=== PATIENT | female | born 1985 | race African-American/Black ===

== ENCOUNTER 2017-11-05 08:31 | Emergency (ER) | payer BC, OTHER ==
[2017-11-05 08:36] VITALS: BMI 23.3
--- NOTE | 2017-11-05 09:24 | PDOC ---
History of Present Illness - General History Source: Patient Exam Limitations: No Limitations - History of Present Illness Initial Comments: 11/05/17 09:37 The patient is a 32 year old female, with a significant past medical history of asthma, who presents to the emergency department with chills, fever, chest pain , nauesa, vomit, and cough for about 4 days. The patient reports the chest pain is constant often made worse with any movement or exertion. She notes having intermittent chills/fevers and a productive cough, often bringing up green sputum. She also notes vomiting after coughing. She denies recent dysuria, frequency, urgency or hematuria. She denies recent shortness of breath. Denies having flu shot. Allergies: NKA Past surgical history: None reported. Social history: Nonsmoker. Denies EtOH use and recreational drug use. Primary Care Physician: None <Cedric Nunn - Last Filed: 11/05/17 11:33> <Juventino Xie - Last Filed: 11/05/17 12:08> - General Chief Complaint: SIRS, Suspected/Possible Stated Complaint: SOB (ASTHMA) Time Seen by Provider: 11/05/17 09:15 Past History <Cedric Nunn - Last Filed: 11/05/17 11:33> - Past Medical History Asthma: Yes COPD: No Kidney Stones: Yes Psychiatric Problems: Yes (ANXIETY.) - Reproductive History (#): 0 - Immunization History Immunization Up to Date: Yes - Suicide/Smoking/Psychosocial Hx Smoking Status: No Smoking History: Never smoked Number of Cigarettes Smoked Daily: 0 Hx Alcohol Use: No Drug/Substance Use Hx: No Substance Use Type: None Hx Substance Use Treatment: No <Juventino Xie - Last Filed: 11/05/17 12:08> - Past Medical History Allergies/Adverse Reactions: Allergies Allergy/AdvReac Type Severity Reaction Status Date / Time No Known Allergies Allergy Verified 11/05/17 08:36 Home Medications: Ambulatory Orders NK [No Known Home Medication] 11/05/17 Review of Systems - Review of Systems Able to Perform ROS?: Yes Comments:: 11/05/17 09:37 GENERAL/CONSTITUTIONAL: +fever and chills. No weakness. HEAD, EYES, EARS, NOSE AND THROAT: No change in vision. No ear pain or discharge. No sore throat. CARDIOVASCULAR: +chest pain No shortness of breath. RESPIRATORY: +cough No wheezing, or hemoptysis. GASTROINTESTINAL: +nausea, vomiting No diarrhea or constipation. GENITOURINARY: No dysuria, frequency, or change in urination. MUSCULOSKELETAL: No joint or muscle swelling or pain. No neck or back pain. SKIN: No rash NEUROLOGIC: No headache, vertigo, loss of consciousness, or change in strength/ sensation. ENDOCRINE: No increased thirst. No abnormal weight change. HEMATOLOGIC/LYMPHATIC: No anemia, easy bleeding, or history of blood clots. ALLERGIC/IMMUNOLOGIC: No hives or skin allergy. <Cedric Nunn - Last Filed: 11/05/17 11:33> *Physical Exam - Vital Signs Last Vital Signs Temp Pulse Resp BP Pulse Ox 100.4 F H 102 H 20 128/83 98 11/05/17 08:33 11/05/17 08:33 11/05/17 08:33 11/05/17 08:33 11/05/17 08:33 - Physical Exam Comments: 11/05/17 10:13 GENERAL: Awake, alert, and fully oriented, in no acute distress HEAD: No signs of trauma EYES: PERRLA, EOMI, sclera anicteric, conjunctiva clear ENT: Auricles normal inspection, hearing grossly normal, nares patent, oOropharynx is erythematous. Bilateral anterior lymphadenopathy. Moist mucosa NECK: Normal ROM, supple, no lymphadenopathy, JVD, or masses LUNGS: Mild Rhonchi bilaterally. HEART: Regular rate and rhythm, normal S1 and S2, no murmurs, rubs or gallops ABDOMEN: Soft, nontender, normoactive bowel sounds. No guarding, no rebound. No masses EXTREMITIES: Normal range of motion, no edema. No clubbing or cyanosis. No cords, erythema, or tenderness NEUROLOGICAL: Cranial nerves II through XII grossly intact. Normal speech, normal gait SKIN: Warm, Dry, normal turgor, no rashes or lesions noted. <Cedric Nunn - Last Filed: 11/05/17 11:33> - Vital Signs Last Vital Signs Temp Pulse Resp BP Pulse Ox 100.4 F H 102 H 20 128/83 98 11/05/17 08:33 11/05/17 08:33 11/05/17 08:33 11/05/17 08:33 11/05/17 08:33 <Juventino Xie - Last Filed: 11/05/17 12:08> ED Treatment Course - RADIOLOGY Radiograph Interpretation: 11/05/17 11:33 CHEST X-RAY IMPRESSIONS BY : No evidence of active pulmonary disease. <Cedric Nunn - Last Filed: 11/05/17 11:33> Medical Decision Making - Medical Decision Making 11/05/17 10:25 Patient is a 32-year-old female with history of asthma (no intubations who presents to the ER with signs and symptoms of flulike illness. Patient is febrile and mildly tachycardic on initial evaluation. Intermittent rhonchi noted bilaterally. Will obtain flu swab, we'll administer Combivent therapy and NSAIDs, we'll obtain chest x-ray to rule out pneumonia. No indication for steroid therapy at this moment. We'll reassess. 11/05/17 12:03 Patient reassessed. Patient is resting comfortably. Lungs have cleared. No adventitious lung sounds are appreciated this time. Patient is also defervesced. Patient is noted to be influenza be positive. Chest x-ray reveals no evidence of infiltrate or effusion. Patient's received first dose of Tamiflu. Patient is safe for discharge with outpatient treatment. I've also informed the patient's of need for prophylaxis with Tamiflu. Patient will be discharged with return to work after a 24-hour afebrile period. <Juventino Xie - Last Filed: 11/05/17 12:08> *DC/Admit/Observation/Transfer - Attestations Scribe Attestion: 11/05/17 09:37 Documentation prepared by Cedric Nunn, acting as medical technical writer for Juventino Xie MD/. <Cedric Nunn - Last Filed: 11/05/17 11:33> - Attestations Physician Attestion: 11/05/17 10:25 The documentation was prepared by the scribe under my direct supervision. I have reviewed the documentation which correctly represents the findings, medical decision-making and critical action taken by me. <Juventino Xie - Last Filed: 11/05/17 12:08> Diagnosis at time of Disposition: Influenza - Discharge Dispostion Disposition: HOME Condition at time of disposition: Stable - Referrals Referrals: Satnam Hussein MD [Staff Physician] - - Patient Instructions Printed Discharge Instructions: DI for Fever (Symptom) -- Adult, Influenza - Post Discharge Activity Forms/Work/School Notes: Back to Work
[2017-11-05] MEDS ORDERED: IBUPROFEN 600 MG TABLET (FP) PO ONE ×2 (09:35→09:41)
[2017-11-05] MEDS ORDERED: ALBUTEROL SO4 2.5/IPRATROPIUM 0.5 INH SOL 3 ML VIAL.NEB. NEB ONE ×4 (09:36→10:23)
[2017-11-05] MEDS ORDERED: OSELTAMIVIR PHOSPHATE 75 MG CAPSULE PO ONE (10:12)
[2017-11-05] MEDS ORDERED: OSELTAMIVIR PHOSPHATE 75 MG CAPSULE ONE (10:22)
[2017-11-05 12:09] VITALS: BP 123/86; PULSE 94; TEMP 99.6
== END 2017-11-05 12:18 | disposition home or self-care (01) ==
LOC: JER 08:31
PROC: 3E0F7GC Introduction of Other Therapeutic Substance into Respiratory Tract, Via Natural or Artificial Opening (ICD-10-PCS; principal; 2017-11-05)
DX: J11.1 Influenza due to unidentified influenza virus with other respiratory manifestations (principal); J45.909 Unspecified asthma, uncomplicated
CPT/HCPCS: 71046-TC-FY; 84703; 87804; 99284-25

== ENCOUNTER 2019-05-06 20:48 | Emergency (ER) | payer SELFPAY ==
--- NOTE | 2019-05-06 20:58 | PDOC ---
Rapid Medical Evaluation Chief Complaint: Chest Pain Time Seen by Provider: 05/06/19 20:51 Medical Evaluation: Allergies Allergy/AdvReac Type Severity Reaction Status Date / Time No Known Allergies Allergy Verified 11/05/17 08:36 05/06/19 20:52 I have performed a brief in-person evaluation of this patient. The patient presents with a chief complaint of: right breast pain with mass x 2 weeks. + Hx of tumor [id number] years ago same breast - benign . No drainage, no fevers. Pertinent physical exam findings: not examined in triage. I have ordered the following: US right breast The patient will proceed to the ED for further evaluation. 05/06/19 20:55 Discharge Disposition - Diagnosis Breast pain - Discharge Dispostion Condition at time of disposition: Stable - Referrals - Patient Instructions - Post Discharge Activity
[2019-05-06 21:04] VITALS: BP 132/76; PULSE 88; TEMP 98.3; BMI 26.4
[2019-05-06] MEDS ORDERED: IBUPROFEN 600 MG TABLET (FP) PO ONE ×2 (21:26→21:31)
--- NOTE | 2019-05-06 21:26 | PDOC ---
History of Present Illness - General Chief Complaint: Pain, Acute Stated Complaint: LUMP IN R BREAST Time Seen by Provider: 05/06/19 20:51 History Source: Patient Exam Limitations: No Limitations Past History - Past Medical History Allergies/Adverse Reactions: Allergies Allergy/AdvReac Type Severity Reaction Status Date / Time No Known Allergies Allergy Verified 11/05/17 08:36 Home Medications: Ambulatory Orders NK [No Known Home Medication] 05/06/19 Asthma: Yes COPD: No Kidney Stones: Yes Psychiatric Problems: Yes (ANXIETY.) - Reproductive History (#): 0 - Immunization History Td Vaccination: Yes TDAP Vaccination: Yes Immunization Up to Date: Yes - Psycho Social/Smoking Cessation Hx Smoking Status: No Smoking History: Never smoked Number of Cigarettes Smoked Daily: 0 Hx Alcohol Use: No Drug/Substance Use Hx: No Substance Use Type: None Hx Substance Use Treatment: No *Physical Exam - Vital Signs Last Vital Signs Temp Pulse Resp BP Pulse Ox 98.3 F 88 19 132/76 100 05/06/19 20:52 05/06/19 20:52 05/06/19 20:52 05/06/19 20:52 05/06/19 20:52 - Physical Exam General Appearance: No: Apparent Distress Respiratory/Chest: positive: Lungs Clear, Normal Breath Sounds. negative: Respiratory Distress Cardiovascular: positive: Regular Rhythm, Regular Rate, S1, S2. negative: Murmur Integumentary: positive: Other (large lump palpable along R breast (around 6x9 cm), it is firm and indurated, only notable on deep palpation, +R nipple inverted, no dimpling of skin, no change in skin color, no flucutuance to site, no nipple discharge). negative: Erythema, Rash, Swelling, Ecchymosis, Bruising Neurologic: positive: Alert, Normal Mood/Affect Medical Decision Making - Medical Decision Making 33 y/o F hx of asthma, R breast tumor removal 10 years ago (unable to recall name of breast surgeon who performed surgery) presents with R breast mass x 1 month, causing pain the past 2 days. Mentions mass has been gradually getting bigger and has not had it evaluated. Denies fever, sob, cp, abd pain, n/v, nipple discharge. Denies FH of breast CA Unable to perform breast US here (as d/w the tech) Not suspicious for abscess However, concern for new tumor Will refer to breast surgery Patient already has [employer] with whom she can follow-up with 05/06/19 21:27 Discharge - Discharge Information Problems reviewed: Yes Clinical Impression/Diagnosis: Breast pain Condition: Stable Disposition: HOME - Admission No - Additional Discharge Information Prescription Drug Monitoring Program (I-STOP) results: I-STOP not reviewed - Follow up/Referral Referrals: Cedric Sellers MD [Staff Physician] - 2 Days - Patient Discharge Instructions Additional Instructions: Thank you for choosing [facility]. It was a pleasure taking care of you. It is very important that you get further evaluation of this right breast mass You will need a mammogram and sonogram of your right breast Please follow-up with your [employer] You were also referred to breast surgeon Return to the Emergency Department if your symptoms worsen or persist, you have fever, redness, streaking, new wound or other concerning symptoms. - Post Discharge Activity
== END 2019-05-06 21:47 | disposition home or self-care (01) ==
LOC: JER 20:48
DX: N64.4 Mastodynia (principal); N63.0 Unspecified lump in unspecified breast
CPT/HCPCS: 84703; 99282-25